=== PATIENT | male | born 1985 | race Two or more races ===

== ENCOUNTER 2017-01-21 13:31 | Emergency (ER) | payer SELFPAY ==
[2017-01-21] MEDS ORDERED: IV RINGERS,LACTATED 1000ML 1,000 ML IV SCH (13:58)
[2017-01-21] MEDS ORDERED: ONDANSETRON PF 4 MG/2 ML VIAL. IV ONE (14:00)
== END 2017-01-21 14:25 | disposition left against medical advice (07) ==
LOC: ER 13:31
DX: R11.2 Nausea with vomiting, unspecified (principal); R10.9 Unspecified abdominal pain; Z53.21 Procedure and treatment not carried out due to patient leaving prior to being seen by health care provider